=== PATIENT | female | born 2000 | race Caucasian/White ===

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

== ENCOUNTER 2021-05-09 14:00 | Emergency (ER) | payer OTHER ==
[~2021-05-09 14:00] MED LIST: KEFLEX CAP 500500 MG PO; LODINE CAP 300300 MG PO; ZOFRAN ODT 4 MG4 MG PO
[2021-05-09 15:32] LABS: HEMOGLOBIN 13.6 gm/dl (12.3-15.3); RED BLOOD COUNT 4.68 M/UL (4.00-5.10); WHITE BLOOD COUNT 7.8 K/UL (4.5-11.0)
[2021-05-09 16:05] LABS: BUN/CREATININE RATIO 12 (0-10)
[2021-05-09] MEDS ORDERED: VENTOLIN HFA 66.7 GM INH (16:50)
== END 2021-05-09 16:53 | disposition home or self-care (01) ==
LOC: ER1 14:00
PROVIDERS: Physician Assistant Medical
DX: R06.02 Shortness of breath (principal); F17.290 Nicotine dependence, other tobacco product, uncomplicated; Z90.89 Acquired absence of other organs; Z20.822 Contact with and (suspected) exposure to COVID-19
CPT/HCPCS: 71045; 80053; 85025; 85379; 99285; U0002

== ENCOUNTER 2021-05-24 21:35 | Emergency (ER) | payer OTHER ==
[~2021-05-24 21:35] MED LIST changes: +VENTOLIN HFA 66.7 GM INH
[2021-05-25] MEDS ORDERED: DECONEX DMX 171 EAC1 PO (00:44)
== END 2021-05-25 00:55 | disposition home or self-care (01) ==
LOC: ER1 21:35
DX: R05 Cough (principal); J02.9 Acute pharyngitis, unspecified; Z90.89 Acquired absence of other organs; F17.290 Nicotine dependence, other tobacco product, uncomplicated; Z20.822 Contact with and (suspected) exposure to COVID-19
CPT/HCPCS: 71045; 86403; 87081; 87880; 99283; U0003

== ENCOUNTER → 2021-05-25 | Outpatient (CLI) | payer OTHER ==
[~2021-05-25] MED LIST changes: +DECONEX DMX 171 EAC1 PO
[2021-05-25 15:38] LABS: RED BLOOD COUNT 4.68 M/UL (4.00-5.10); WHITE BLOOD COUNT 11.8 K/UL (4.5-11.0)
[2021-05-25 15:59] LABS: BUN/CREATININE RATIO 10 (0-10)
[2021-05-26 08:15] LABS: VITAMIN D, 25-HYDROXY 43.3 ng/mL (30.0-100.0)
[2021-05-26 10:15] LABS: HBSAG SCREEN Negative (Negative); HEP A AB, IGM Negative (Negative); HEP B CORE AB, IGM Negative (Negative); HEP C VIRUS AB <0.1 (0.0-0.9)
== END ==
LOC: LAB 14:32
PROVIDERS: Nurse Practitioner Family
DX: R53.83 Other fatigue (principal); J02.9 Acute pharyngitis, unspecified; R50.9 Fever, unspecified; Z79.899 Other long term (current) drug therapy; Z79.1 Long term (current) use of non-steroidal anti-inflammatories (NSAID)
CPT/HCPCS: 36415; 80053; 80061; 80074; 82550; 82607; 82728; 83036; 83540; 83550; 84439; 84443; 85025; 85379; 85652; 86140